=== PATIENT | female | born 1955 | race Caucasian/White ===

== ENCOUNTER 2018-03-21 17:34 | Emergency (ER) | payer SELFPAY ==
[2018-03-21] MEDS ORDERED: CEPHALEXIN500 M1 PO (18:25)
[2018-03-21] MEDS ORDERED: PEPCID 20MG TAB20 MG PO (18:39)
[2018-03-21 19:00] VITALS: BP 136/81; PULSE 78; TEMP 97.9
[2018-03-21] MEDS ORDERED: [UNRECOGNIZED DRUG - OTHER] (19:11)
== END 2018-03-21 19:00 | disposition home or self-care (01) ==
LOC: COL.ER 17:34
DX: N64.52 Nipple discharge (principal); I10 Essential (primary) hypertension